=== PATIENT | female | born 1960 | race Caucasian/White ===

== ENCOUNTER → 2020-08-07 | Outpatient (CLI) | payer OTHER ==
[2020-08-08 09:12] LABS: HBSAG SCREEN Negative (Negative); HEP B CORE AB, TOT Negative (Negative)
[2020-08-08 10:13] LABS: HCV AB <0.1 (0.0-0.9)
[2020-08-08 13:13] LABS: SJOGREN'S ANTI-SS-A <0.2 AI (0.0-0.9); SJOGREN'S ANTI-SS-B <0.2 AI (0.0-0.9)
[2020-08-08 14:13] LABS: ANGIOTENSIN-CONVERTING ENZYME <15 U/L (14-82); TREPONEMA PALLIDUM ANTIBODIES Non Reactive (Non Reactive)
[2020-08-10 01:09] LABS: CCP ANTIBODIES IGG/IGA 4 units (0-19)
== END ==
LOC: LAB 12:50
PROVIDERS: Internal Medicine
DX: R76.8 Other specified abnormal immunological findings in serum (principal); D64.9 Anemia, unspecified; D72.819 Decreased white blood cell count, unspecified; L98.9 Disorder of the skin and subcutaneous tissue, unspecified; L42 Pityriasis rosea; D89.89 Other specified disorders involving the immune mechanism, not elsewhere classified; M25.50 Pain in unspecified joint
CPT/HCPCS: 36415; 82164; 83520; 85652; 86140; 86200; 86235; 86704; 86780; 86803; 87340

== ENCOUNTER → 2021-04-22 | Outpatient (CLI) | payer OTHER | LOC: NM 09:35 | DX: E11.622 Type 2 diabetes mellitus with other skin ulcer (principal); L97.329 Non-pressure chronic ulcer of left ankle with unspecified severity; E11.51 Type 2 diabetes mellitus with diabetic peripheral angiopathy without gangrene; M19.072 Primary osteoarthritis, left ankle and foot; M19.071 Primary osteoarthritis, right ankle and foot | CPT/HCPCS: 78315; 93926; A9503 ==